=== PATIENT | female | born 1975 | race Caucasian/White ===

== ENCOUNTER → 2017-02-17 | Outpatient (CLI) | payer BC ==
[2011-02-03 18:38] VITALS: BP 158/111
--- NOTE | 2017-02-22 10:42 | DI ---
See diagnostic mammogram report of the same day.
== END ==
LOC: MAMMO 16:16
PROVIDERS: ATTEND Obstetrics & Gynecology
DX: R92.8 Other abnormal and inconclusive findings on diagnostic imaging of breast (principal)
CPT/HCPCS: G0206; G0279

== ENCOUNTER 2017-05-01 18:37 | Emergency (ER) | payer BC ==
[2017-05-01] MEDS ORDERED: Penicillin V Potassium Tab 500 MG TAB PO SCH (19:00)
[2017-05-01 19:06] VITALS: RESP 16; TEMP 97.9
--- NOTE | 2017-05-01 19:58 | PDOC ---
Sore Throat/Dental Pain HPI - General Chief Complaint: Sore Throat Stated Complaint: SORE THROAT X 1 WEEK Date Seen by Provider: 05/01/17 Time Seen by Provider: 18:45 Source: POSITIVE: Patient Exam Limitations: POSITIVE: No limitations Nurse's Notes Reviewed & Considered: Yes - History of Present Illness Initial Comments: The patient is a 41 year old female. She presents to the emergency room complaining of a 6 day history of sore throat with increased fatigue. Some mild nonproductive cough. No known fevers. Patient states "I think I have strep ". 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 Allergic to sulfa. History of hypertension for which she takes lisinopril. Location: Throat Timing: REPORTS: Constant Duration: <1 week (6 days) Severity: Moderate Quality: REPORTS: "Pain" (Sore throat) Context: DENIES: Foreign Body, Ingestion, Fractured Tooth, Other Modifying Factors: worse with: Rest, Exertion, Coughing, OTC Cough Expectorant, OTC Cough Suppressant, Deep Breathing, Lying Flat, Heat, Cold, Other Associated Symptoms: REPORTS: Sore Throat, Cough (Mild, nonproductive). DENIES : Unable to Swallow, Fever, Chills, Runny Nose, Congestion, Toothache, Facial Pain, Earache, Swollen Jaw, Swollen Face, Jaw Pain, Swollen Glands, Other Similar Symptoms Previously: No Recently seen/treated/hospitalized: No Any Prior Injuries Related to Current Complaint?: No - Patient Home Medications Home Medications: Home Medications Lisinopril 1 tab PO DAILY #30 tab 11/19/16 Penicillin V Potassium 500 mg PO Q6H #36 tab 05/01/17 - Patient Allergies Allergies/Adverse Reactions: Allergies Allergy/AdvReac Type Severity Reaction Status Date / Time Shellfish *RETIRED-07/21/12 Allergy Intermediate SWELLING, Verified 05/01/17 18: 43 [Shellfish *RETIRED-01/12/13] HIVES Past Medical History - heen HEENT History: Denies History Cardiovascular History: Hypertension Respiratory History: Denies History Gastrointestinal History: Denies History Genitourinary History: Denies History Endocrine History: Denies History Musculoskeletal History: Denies History Neurological History: Denies History Blood Disorders: Denies History Psychiatric History: Denies History Female Reproductive History: Denies History Obstetrical History: Delivery Cancer History: Denies History In Past Year Been Physically Harmed or Verbally Threatened: No History of MDRO: No Tobacco Use: Never Smoker Alcohol Use: Occasionally Substance Use Type: None Previous Surgical History: Yes Type / Date of Surgery: Significant Family History: No pertinent family hx Past Medical History Reviewed: Reviewed - No Changes ROS - Limitations ROS Limitations: No Limitations Constitution: REPORTS: Other (Easy fatigability) Cardiovascular: REPORTS: Denies Cardiac Symptoms Respiratory: REPORTS: Denies Resp Symptoms Neurological: REPORTS: Denies Neuro Symptoms Gastrointestinal: REPORTS: Denies GI Symptoms Endocrine: REPORTS: Denies Symptoms Musculoskeletal: REPORTS: Denies MS Symptoms Genitourinary: REPORTS: Denies Symptoms Eyes: REPORTS: Denies Symptoms ENT: REPORTS: Sore Throat Skin: REPORTS: Denies Skin Symptoms Lympathic: REPORTS: Denies Lympathic Symptoms Immunologic: POSITIVE: Denies Symptoms Psychiatric: POSITIVE: Denies Psych Symptoms Sore Throat/Dental Pain Exam - General Appearance General Appearance: REPORTS: Alert, Cooperative, No Acute Distress, No Evidence of Trauma - HEENT Head / Face: POSITIVE: Atraumatic, Normal Inspection, No Facial Swelling Eyes: POSITIVE: Inspection Normal, PERRL, EOM's Intact, Eyelids Uninjured, Conjunctivae Uninjured, No Nystagmus, No Globe Trauma, Sclera Normal, Normal Corneal Inspection Ears: POSITIVE: Ears Normal Inspection, TM Normal Inspection, Auricle Normal, External Canal Normal Nose: POSITIVE: Inspection Normal, No Apparent Trauma, Nares Normal, No CSF Leak Oropharynx: POSITIVE: External Inspection Nml, Airway Intact, Voice Normal, Moist Mucous Membranes, No Oral Injury, Lips Normal, Gums Normal, No Drooling, No Thrush, Normal Gag Reflex, Pharyngeal Erythema. NEGATIVE: Pharynx Inspect. Nml (Pharyngeal erythema) Neck: POSITIVE: Supple, Normal Inspection, Non Tender Dental: POSITIVE: No Dental Injury - Respiratory Respiratory: REPORTS: No Respiratory Distress, Breath Sounds Normal, No Pleuritic Chest Pain, Speaks Full Sentences, No Pain on Inspiration - Cardiovascular Cardiovascular: REPORTS: Regular Rate and Rhythm, Heart Sounds Normal, Equal Pulses, Strong Pulses Peripheral Pulses: Radial (R): 2+, Radial (L): 2+ - Skin Skin: REPORTS: Intact, Normal For Race, Warm, Dry, No Rash - Neurological / Psychological Neurological: POSITIVE: Oriented X3, creative recruiter Normal As Tested, Motor Normal, Sensation Normal, 5, 6 Images - Dental Dental: 1 - Erythema Sore Throat/Dental Progress - Results Reviewed by me Lab Results Reviewed: Yes (rapid strep screen positive) - Patient's Progress Pain Medication Addressed: POSITIVE: Yes (Recommended Tylenol) School/Work Release Addressed: POSITIVE: Yes (No daycare for 72 hours) Re-Examine Time:: 19:10 Status: POSITIVE: Unchanged - Consult Counseled: POSITIVE: Patient, RE: Lab Results, RE: DX, RE: Need for F/U Patient Care Time - Estimated PCT Patient Care Time (In Minutes): 18 Vital Signs - Recent Vital Signs Vital Signs: Vital Signs (Last 8 hours) Temp Pulse Resp BP Pulse Ox 05/01/17 18:42 97.9 F 68 16 150/104 94 - VS Reviewed Vital Signs Reviewed: Yes Discharge Clinical Impression: Streptococcal sore throat Discharge Disposition: Discharged to Home Condition: Stable Prescriptions / Orders: Penicillin V Potassium 500 mg PO Q6H #36 tab Patient Instructions Given at Discharge: Strep Throat (ED) Additional Instructions: Pen-Vee K, one every 6 hours(one 4 times a day) for 10 days. Avoid coughing sneezing around other people. Return here anytime if condition worsens. Follow -up with your primary care provider. Follow Up With: NONE,NONE [Primary Care Provider] - (Instructions as above. Follow-up with your primary care provider. Return here anytime if condition worsens.)
== END 2017-05-01 19:13 | disposition home or self-care (01) ==
LOC: ER 18:37
DX: J02.0 Streptococcal pharyngitis (principal); R53.83 Other fatigue; R05 Cough; I10 Essential (primary) hypertension
CPT/HCPCS: 87802; 99282